=== PATIENT | female | born 1955 | race Caucasian/White ===

== ENCOUNTER → 2018-10-19 | Outpatient (CLI) | payer OTHER ==
[~2018-10-19] MED LIST: AMIT10 PO; ASCO500 PO; ASPI81CH PO; CLON.1 PO; CRANBERRY 12,61 EACH PO; CYCL10 PO; DIPH50 PO; Hair, Skin & N1 EACH PO; IBUP400 PO; L-LYSINE500 MG PO; LEVSOD75 PO; MELA3 PO; MILK THISTLE1 GM MC; NATURAL LUTEIN20 MG PO; OMEGA DHA92 MG PO; RANI150 PO
== END | disposition home or self-care (01) ==
LOC: LAB SHORT 12:25 → LAB EV 12:25
DX: R35.0 Frequency of micturition (principal)
CPT/HCPCS: 87077; 87086; 87186

== ENCOUNTER → 2018-11-18 | Outpatient (CLI) | payer OTHER | END | disposition home or self-care (01) | LOC: LAB SHORT 18:18 → LAB EV 18:18 | DX: N39.0 Urinary tract infection, site not specified (principal) | CPT/HCPCS: 87077; 87086; 87186 ==